=== PATIENT | female | born 1950 | race Caucasian/White ===

== ENCOUNTER → 2016-06-17 | Day surgery (SDC) | payer MEDICARE, OTHER ==
[~2016-06-17] MED LIST: ACETAMINOPHEN PO; AMLODIPINE BESYL5 MG PO; ASPIRIN81 M1 PO; CITALOPRAM HBR40 MG PO; CLOPIDOGREL BIS75 MG PO; COUMADIN7.5 MG PO; CRESTOR PO; DITROPAN PO; DONEPEZIL HCL10 MG PO; ENABLEX15 MG PO; GABAPENTIN300 MG PO; LOSARTAN-HCTZ1 EAC2 PO; METHADONE HCL10 MG PO; METHYLPREDNISOLO4 M1 PO; NIACIN500 M3 PO; OMEGA 3 500 SO1 EACH; QUETIAPINE FUMA50 MG PO; TOPAMAX50 MG PO; ZOCOR20 MG PO
--- NOTE | ~2016-06-17 | OR ---
Unit #: [id number] #: [id number] Patient: BENJI STANLEY [id number] [address] [id number] [id number] O MR#: [id number] NAME: BENJI STANLEY. ROOM: Date of Procedure: 06/17/2016 Admission Date: 06/17/2016 Surgeon: Justo Nash M.D. : 1950 Attending Physician: Justo Nash M.D. Primary Care Physician: Shaun Artis M.D. OPERATIVE REPORT SERVICES PROVIDED 1. Therapeutic right L5-S1 lumbar transforaminal and right S1 transforaminal epidural steroid injections. 2. Fluoroscopy of the lumbosacral spine. 3. IV sedation to facilitate the above. PREOPERATIVE DIAGNOSES 1. Right L5, S1 radiculopathy secondary to degenerative disk disease at L5-S1 and severe neural foraminal stenosis. 2. Hypertension, and osteoarthritis. POSTOPERATIVE DIAGNOSES 1. Right L5, S1 radiculopathy secondary to degenerative disk disease at L5-S1 and severe neural foraminal stenosis. 2. Hypertension, and osteoarthritis. PROCEDURE PERFORMED Lumbar transforaminal epidural steroid injections using fluoroscopy. FOLLOW-UP/REVIEW OF SYSTEMS/PHYSICAL EXAM Ms. Stanley is here for a right L5-S1 and right S1 transforaminal epidural steroid injection. She has no medical contraindications to the procedure, performed as follows with her consent. INDICATIONS/COMMENTS AND CONSENTS/STATEMENT OF MEDICAL NECESSITY The patient's current medications, allergies and vital signs are documented in the nursing assessment. The risks and benefits of the intervention(s) were discussed with the patient in detail including but not limited to infection, bleeding, meningitis, steroid induced side-effects, nerve damage, paralysis, spinal headaches, neuritis, persistent or worsening pain. The patient wishes to proceed. A separate pain assessment is also in the chart. I have reviewed all of this and have reviewed this with the patient. A current History and Physical is also attached. DESCRIPTION OF PROCEDURE(S) 1. Monitoring and positioning: After appropriate discussions it was decided to perform the procedure under local anesthesia with supplemental intravenous sedation. Vital signs were monitored in pre, intra and post-procedure phase. Monitoring included EKG, non-invasive BP, pulse oximetry, and temperature. These are documented and were stable. Appropriate supports and restraints were used. Unit #: [id number] #: [id number] Patient: BENJI STANLEY 2. Sedation: A total of 1 mg of Versed and 50 mcg of fentanyl was administered. 3. Transforaminal epidural injection or selective nerve root block / fluoroscopy:. The patient was placed in the prone position. Sterile prep and drape was carried out with ChloraPrep. Positional supports were used. Fluoroscopy of the lumbosacral spine was performed. Local anesthesia was infiltrated with 3 mL of preservative-free 1% lidocaine. Once anesthesia was established, a 20-gauge blunt Epimed nerve block needle was inserted into right L5-S1, S1 transforaminal regions with oblique fluoroscopic guidance, and advanced lateral to the superior articular process and to the superior aspect of the intervertebral foramen. Needle placement tested negative for subarachnoid and intravascular placement. An intraoperative dye study was now performed. Intraoperative dye study: 1 mL of Isovue-300 was injected through the needle under continuous fluoroscopy. The spread of the dye was uniform along the right L5 and right S1 nerve root sleeves. There was no intravascular or intrathecal spread of contrast. A right L5-S1 and a right S1 transforaminal epidural steroid injection was performed using a total of 2 mL of a solution containing 0.7% lidocaine and 40 mg of Depo-Medrol. Fluoroscopic imaging confirmed spread of medication. The needle(s) were then removed intact. The skin was washed off. Prep solution and dressings were applied at the injection sites. The patient tolerated the procedure well. The patient was then observed in the recovery area for 30 minutes. RESULTS The patient had a consistent block with the dose of local anesthetic used. Pain relief was satisfactory. There were no complications or side effects. DISCHARGE CONDITION 1. The patient was discharged in a satisfactory condition accompanied by a family member. 2. Post-procedure instructions were given. PLAN(S) The patient will return to the clinic in 2 months for re-assessment and office visit. I thank the patient's referring physician for the opportunity to participate in the care of this patient. Please do not hesitate to call for any questions regarding this patient's pain management. Dictated by... Keegan Hernández TD: 06/17/2016 20:21 JOB #: [id number] Unit #: [id number] #: [id number] Patient: BENJI STANLEY OPERATIVE REPORT X Justo Nash MD X PROCEDURE OPERATIVE NOTE
== END | disposition home or self-care (01) ==
LOC: CCSC 09:46
DX: M51.17 Intervertebral disc disorders with radiculopathy, lumbosacral region (principal); I10 Essential (primary) hypertension; M19.90 Unspecified osteoarthritis, unspecified site; I69.398 Other sequelae of cerebral infarction; M54.9 Dorsalgia, unspecified; Z85.43 Personal history of malignant neoplasm of ovary
CPT/HCPCS: J1030; J1040; J2250; J3010